=== PATIENT | male | born 1975 | race Caucasian/White ===

== ENCOUNTER 2022-01-22 13:50 | Outpatient (REF) | payer OTHER, SELFPAY ==
[2022-01-22 16:37] LABS: Hemoglobin 16.5 g/dl (14.0-18.0); Mean Corpuscular HGB Conc 35.1 g/dl (31.0-36.0); Mean Corpuscular Volume 91.3 fL (80.0-98.0); Mean Platelet Volume 9.1 fL (9.4-12.4); Platelet Count 174 X10*3/uL (160-400); Red Blood Count 5.15 X10*6/uL (4.60-5.80); Red Cell Distribution Width 11.9 % (11.0-16.0); White Blood Count 5.9 X10*3/uL (4.8-10.8)
[2022-01-22 16:50] LABS: Alanine Aminotransferase 37 U/L (0-40); Albumin Level 4.7 g/dL (3.5-5.0); Alkaline Phosphatase 62 U/L (39-117); Anion Gap 14 (12-20); Aspartate Amino Transferase 27 U/L (5-37); Bilirubin Direct 0.3 mg/dL (0.0-0.5); Blood Urea Nitrogen 11 mg/dL (9-16); C Reactive Protein 0.03 mg/dL (< or = 0.50); Calcium 9.7 mg/dL (8.4-10.2); Carbon Dioxide 31 mmol/L (22-29); Chloride 100 mmol/L (96-108); Cholesterol 192 mg/dL; Estimated Glomerular Filt Rate > 60; Glucose Random 85 mg/dL (60-115); HDL Cholesterol 36 mg/dL; LDL Cholesterol Calculated 99 mg/dl; Potassium 3.9 mmol/L (3.3-5.1); Sodium 141 mmol/L (135-145); Total Protein 7.4 g/dL (6.5-8.0); Triglycerides 289 mg/dL
[2022-01-22 18:10] LABS: Erythrocyte Sedimentation Rate 5 MM/HR (0-15)
== END 2022-01-22 13:51 | disposition home or self-care (01) ==
LOC: HO.HMGCLDS 13:50
PROVIDERS: Visit Provider Internal Medicine
DX: R21 Rash and other nonspecific skin eruption (principal)
CPT/HCPCS: 36415; 80048; 80061; 80076; 85027; 85652; 86140

== ENCOUNTER 2023-06-10 08:33 | Outpatient (AMB) | payer OTHER, SELFPAY ==
--- NOTE | 2023-06-10 09:08 | AM.OFFWIN_ITS ---
Intake Vital Signs 06/10/23 09:17 Weight 92.533 kg BP 118/72 Blood Pressure Location Lt brachial Position Sitting Pulse 73 Pulse Source Pulse Oximeter Temp 98.1 F Temp Source Oral Pulse Oximetry (%) 97 Oxygen Delivery Method Room Air Intake Visit Reasons: EP Cough [phone] Intake Note: pt is here for c/o cough for 10 days, with bilateral ear pain Patient Tobacco Use Status: Never used Tobacco Allergies acetaminophen [Percocet] Allergy (Unknown, Verified 06/10/23 09:09) Unknown oxycodone [Percocet] Allergy (Unknown, Verified 06/10/23 09:09) Rash penicillin V Allergy (Unknown, Verified 06/10/23 09:09) Rash penicillin Allergy (Unknown, Uncoded 01/22/22 13:21) Rash Do you need a note to return to daycare/school/sports/work: Yes HPI HPI Comments History of Present Illness Details 0921 This is a 48-year-old male with history of hyperlipidemia presenting to the clinic for evaluation of fatigue, malaise, dry cough, bilateral ear pain ongoing for the past 10 days. His symptoms do not seem to be improving. Cough worse at night. Denies sick contacts. Denies chest pain, shortness of breath, nausea, vomiting, abdominal pain, wheezing, headache, vision changes, dizziness, lower extremity edema. Physical exam benign Likely viral illness versus bronchitis versus allergies. Unlikely pneumonia, PE as patient is PERC negative, ACS, dissection, acute respiratory distress. Plan will treat for bronchitis with doxycycline, prednisone, inhaler. Educated patient on diagnosis and treatment plan, answered all question, patient verbalizes understanding. At this time patient will be discharged home, advised to return with new or worsening symptoms. Educated on worrisome signs and symptoms and when to return. At this time I feel comfortable discharge home. [facility] Social History Patient Tobacco Use Status: Never used Tobacco Review of Systems Const All systems reviewed & are unremarkable except as noted in HPI and below Physical Exam Vital Signs: Last Vital Signs Temp 98.1 F 06/10/23 09:17 Pulse 73 06/10/23 09:17 BP 118/72 06/10/23 09:17 Pulse Ox 97 06/10/23 09:17 Oxygen Delivery Method Room Air 06/10/23 09:17 vss Appearance: Alert.? Oriented X3.? No acute distress.? Head: Normocephalic, atraumatic, no step-offs or deformities Eyes: Pupils equal, round and reactive to light.? ENT: Pharynx normal.? Neck: Normal inspection.? Neck supple.? CVS: Normal heart rate and rhythm.? Pulses normal.? Respiratory: No respiratory distress.? Breath sounds normal.? Abdomen: Soft and nontender.? Skin: Skin warm and dry.? Normal skin color.? Normal skin turgor.? Extremities: No lower extremity edema.? No calf ttp. 5/5 strength to bilateral upper and lower extremities Back: No midline tenderness, no C-spine tenderness, full range of motion, no CVA tenderness bilaterally Neuro: Oriented X 3.? No motor deficit.? No sensory deficit. CN 2-12 intact Assessment & Plan Assessment & Plan (1) Bronchitis: Code(s): J40 - Bronchitis, not specified as acute or chronic Plan Take your medications as prescribed. If you were prescribed antibiotics today, it is important that you take your medication to their entirety, do not skip any doses, do not finish them early. Follow-up with your primary care provider this week. Return to the emergency department with new or worsening symptoms. Such as fevers, chills, chest pain, shortness of breath, nausea, vomiting, dizziness, headache, vision changes, lethargy In case of emergency call 911 Medications: New benzonatate 100 mg PO BID PRN 14 caps 0RF cough prednisone 40 mg (2 x 20 mg) PO DAILY 10 tabs 0RF 5 days doxycycline hyclate 100 mg PO BID 14 caps 0RF 7 days albuterol sulfate 90 mcg/actuation 2 puffs inhalation Q6H PRN 6.7 grams 0RF shortness of breath or wheezing Coding Level of Care Code Est Pt Level 3 (36136) Diagnoses Bronchitis J40
[2023-06-10 09:17] VITALS: BP 118/72; PULSE 73; TEMP 36.7; O2SAT 97
== END 2023-06-10 09:41 | disposition home or self-care (01) ==
PROVIDERS: Visit Provider Physician Assistant
DX: J40 Bronchitis, not specified as acute or chronic (principal)
CPT/HCPCS: 99213

== ENCOUNTER 2024-01-08 11:13 | Outpatient (REF) | payer OTHER, SELFPAY ==
[2024-01-08 13:22] LABS: Hematocrit 47.9 % (42.0-52.0); Hemoglobin 16.8 g/dl (14.0-18.0)
[2024-01-08 14:04] LABS: Prostate Specific Antigen Scr 0.81 ng/mL (<0.05-4.0)
[2024-01-10 03:39] LABS: Prolactin 10.7 ng/mL (2.0-18.0)
[2024-01-13 02:08] LABS: Testosterone, Total 806 ng/dL (250-1100)
== END 2024-01-08 11:14 | disposition home or self-care (01) ==
LOC: HO.HMGCLDS 11:13
PROVIDERS: PCP Internal Medicine; Visit Provider Internal Medicine Endocrinology, Diabetes & Metabolism
DX: E23.0 Hypopituitarism (principal); Z12.5 Encounter for screening for malignant neoplasm of prostate
CPT/HCPCS: 36415; 84146; 84153; 84403; 85014; 85018